=== PATIENT | male | born 1965 | race Caucasian/White ===

== ENCOUNTER 2018-09-19 21:43 | Inpatient (IN) | payer BC, OTHER ==
[2018-09-19] MEDS: SODIUM CHLORIDE 0.9% 1L BAG IV* (22:33)
[2018-09-19 22:43] LABS: ADD MAN DIFF? NO
[2018-09-19 22:46] LABS: WHITE BLOOD COUNT 15.3 10^3/ul (4.8-10.8)
[2018-09-19 22:46] LABS: BASOPHIL # 0.1 10^3/ul (0.0-0.1); BASOPHILS % 0.3 % (0.0-2.0); EOSINOPHILS # 0.4 10^3/ul (0.0-0.5); EOSINOPHILS % 2.7 % (0.0-7.0); HEMATOCRIT 46.1 % (42.0-52.0); HEMOGLOBIN 15.3 g/dl (14.0-18.0); LYMPHOCYTES # 1.7 10^3/ul (0.8-2.9); LYMPHOCYTES % 10.8 % (15.0-51.0); MEAN CORPUSCULAR HEMOGLOBIN 28.4 pg (29.0-33.0); MEAN CORPUSCULAR HGB CONC 33.2 g/dl (32.0-37.0); MEAN CORPUSCULAR VOLUME 85.7 fl (82.0-101.0); MEAN PLATELET VOLUME 10.7 fl (7.4-10.4); MONOCYTE # 0.9 10^3/ul (0.3-0.9); MONOCYTES % 6.1 % (0.0-11.0); NEUTROPHIL # 12.2 10^3/ul (1.6-7.5); NEUTROPHILS % 79.7 % (39.0-77.0); PLATELET COUNT 280 10^3/UL (140-415); RED BLOOD COUNT 5.38 10^6/ul (4.70-6.10); RED CELL DISTRIBUTION WIDTH 12.9 % (11.5-14.5)
[2018-09-19 23:00] LABS: LACTIC ACID 2.4 mmol/L (0.5-2.0)
[2018-09-19 23:03] LABS: ANION GAP 12 (5-13); BLOOD UREA NITROGEN 24 mg/dl (7-20); CALCIUM 9.2 mg/dl (8.4-10.2); CARBON DIOXIDE 28 mmol/L (21-31); CHLORIDE 95 mmol/L (97-110); CREATININE 1.31 mg/dl (0.61-1.24); Estimated GFR 57 mL/min (>60); GLUCOSE 174 mg/dl (70-220); POTASSIUM 3.5 mmol/L (3.5-5.1); SODIUM 135 mmol/L (135-144)
[2018-09-19 23:05] LABS: INR 1.09; PROTIME 14.2 Sec (11.9-14.9); PT RATIO 1.1
[2018-09-19 23:06] LABS: PARTIAL THROMBOPLASTIN TIME 26.4 Sec (23.0-35.0)
[2018-09-19] MEDS: CEFEPIME 2GM/50 ML (PMX) 50 ML IVPB (23:09)
[2018-09-19] MEDS: VANCOMYCIN 1 GM (PMX) 250 ML IVPB (23:10)
[2018-09-19 23:17] LABS: TROPONIN-I < 0.012 ng/ml (0.000-0.120)
[2018-09-20 00:50] LABS: ADD UMIC NO; UR ASCORBIC ACID NEGATIVE (NEGATIVE); UR BILIRUBIN (Dip) NEGATIVE (NEGATIVE); UR BLOOD (Dip) NEGATIVE (NEGATIVE); UR CLARITY SLIGHTLY CLOUDY (CLEAR); UR COLOR YELLOW (YELLOW); UR GLUCOSE (Dip) 1+ mg/dL (NEGATIVE); UR HYALINE CAST FEW /HPF (NONE SEEN); UR KETONES (Dip) NEGATIVE (NEGATIVE); UR LEUKOCYTE ESTERASE (Dip) NEGATIVE Leu/ul (NEGATIVE); UR MUCUS MANY /HPF (NONE SEEN); UR NITRITE (Dip) NEGATIVE (NEGATIVE); UR RBC 0 /HPF (0-5); UR SPECIFIC GRAVITY (Dip) 1.015 (1.003-1.030); UR TOTAL PROTEIN (Dip) NEGATIVE (NEGATIVE); UR UROBILINOGEN (Dip) 2+ mg/dL (NEGATIVE); UR WBC 2 /HPF (0-5)
[2018-09-20 01:05] LABS: LACTIC ACID 1.7 mmol/L (0.5-2.0)
[2018-09-20] MEDS ORDERED: ACETAMINOPHEN 325 MG TAB PO (04:00)
[2018-09-20] MEDS ORDERED: DOCUSATE SODIUM 100 MG CAP PO (04:00)
[2018-09-20] MEDS ORDERED: ONDANSETRON 4 MG INJ IV (04:00)
[2018-09-20] MEDS ORDERED: BISACODYL (EC) 5 MG TAB PO (04:00)
[2018-09-20] MEDS ORDERED: NACL 0.9% 3 ML SYG IV (04:00)
[2018-09-20] MEDS: SOD CHLORIDE 0.9% 500 ML IV (04:59)
[2018-09-20] MEDS ORDERED: ALPRAZOLAM 0.5 MG TAB PO ×2 (05:00→10:00)
[2018-09-20] MEDS ORDERED: HEPARIN 5,000 UNIT/0.5 ML VIAL (05:22)
[2018-09-20] MEDS: AMLODIPINE 5 MG TAB PO (05:28)
[2018-09-20] MEDS: HEPARIN 5,000 UNIT/1 ML VIAL SC (05:30)
[2018-09-20] MEDS ORDERED: PIPER-TAZO 2.25 GM (PMX) 50 ML IVPB (06:00)
[2018-09-20] MEDS ORDERED: VANCOMYCIN IV PER PHARMACY XX (06:00)
[2018-09-20] MEDS: PIPER-TAZO 3.375 GM IV (PMX) 100 ML IVPB ×3 (06:18→20:35)
[2018-09-20 06:21] LABS: ADD MAN DIFF? NO
[2018-09-20 06:26] LABS: WHITE BLOOD COUNT 14.7 10^3/ul (4.8-10.8)
[2018-09-20 06:26] LABS: BASOPHILS % 0.3 % (0.0-2.0); EOSINOPHILS % 0.1 % (0.0-7.0); HEMATOCRIT 40.3 % (42.0-52.0); HEMOGLOBIN 13.4 g/dl (14.0-18.0); LYMPHOCYTES # 0.7 10^3/ul (0.8-2.9); LYMPHOCYTES % 4.8 % (15.0-51.0); MEAN CORPUSCULAR HEMOGLOBIN 28.4 pg (29.0-33.0); MEAN CORPUSCULAR HGB CONC 33.3 g/dl (32.0-37.0); MEAN CORPUSCULAR VOLUME 85.4 fl (82.0-101.0); MEAN PLATELET VOLUME 10.9 fl (7.4-10.4); MONOCYTE # 0.7 10^3/ul (0.3-0.9); MONOCYTES % 4.7 % (0.0-11.0); NEUTROPHIL # 13.1 10^3/ul (1.6-7.5); NEUTROPHILS % 89.3 % (39.0-77.0); PLATELET COUNT 228 10^3/UL (140-415); RED BLOOD COUNT 4.72 10^6/ul (4.70-6.10); RED CELL DISTRIBUTION WIDTH 13.2 % (11.5-14.5)
[2018-09-20 06:42] LABS: LACTIC ACID 1.7 mmol/L (0.5-2.0)
[2018-09-20 06:43] LABS: HEMOGLOBIN A1C 6.3 % (0-5.9)
[2018-09-20 06:51] LABS: ALANINE AMINOTRANSFERASE 25 IU/L (13-69); ALBUMIN 3.8 g/dl (3.3-4.9); ALKALINE PHOSPHATASE 72 IU/L (42-121); ANION GAP 12 (5-13); ASPARTATE AMINO TRANSFERASE 25 IU/L (15-46); BILIRUBIN,INDIRECT 0.7 mg/dl (0-1.1); BILIRUBIN,TOTAL 0.7 mg/dl (0.2-1.3); BLOOD UREA NITROGEN 18 mg/dl (7-20); CALCIUM 8.5 mg/dl (8.4-10.2); CARBON DIOXIDE 29 mmol/L (21-31); CHLORIDE 96 mmol/L (97-110); CREATININE 1.05 mg/dl (0.61-1.24); Estimated GFR > 60 mL/min (>60); GLUCOSE 232 mg/dl (70-220); MAGNESIUM 1.6 mg/dl (1.7-2.5); POTASSIUM 3.1 mmol/L (3.5-5.1); SODIUM 137 mmol/L (135-144); TOTAL PROTEIN 5.9 g/dl (6.1-8.1)
[2018-09-20 07:17] LABS: THYROID STIMULATING HORMONE 0.254 MIU/L (0.465-4.680)
[2018-09-20] MEDS: HYDROCODONE/APAP (5/325) TAB PO ×3 (07:45→20:34)
[2018-09-20] MEDS: hydrALAzine 20 MG INJ IV (07:46)
[2018-09-20] MEDS: VANCOMYCIN 1.25 GM in SOD CHLORIDE 0.9% 250 ML IVPB ×2 (08:56→21:15)
[2018-09-20] MEDS: HYDROCHLOROTHIAZIDE 25 MG TAB PO (08:56)
[2018-09-20] MEDS: INFLUENZA VIRUS VACCINE 0.5 ML (DISPENSING) IM* (08:58)
[2018-09-20] MEDS ORDERED: hydrALAzine 20 MG INJ IV (10:00)
[2018-09-20] MEDS: METOPROLOL 25 MG TAB PO ×2 (10:59→20:34)
[2018-09-20] MEDS: FAMOTIDINE 20 MG TAB PO ×2 (10:59→20:34)
[2018-09-20] MEDS: POTASSIUM CHLORIDE (SR) 20 MEQ TAB PO ×2 (10:59→11:10)
[2018-09-20] MEDS: ENOXAPARIN 40 MG/0.4 ML SYG SC (11:00)
[2018-09-20] MEDS: MAGNESIUM SULFATE 2 GM/50 ML 50 ML IVPB (11:00)
[2018-09-20] MEDS: morphine 2 MG INJ IV ×3 (13:09→21:15)
[2018-09-20] MEDS: NICOTINE (21 MG/24 HR) PATCH TRANSDERM (16:22)
[2018-09-20] MEDS: ALPRAZOLAM 0.25 MG TAB PO (20:33)
[2018-09-21] MEDS: morphine 2 MG INJ IV ×3 (01:39→10:34)
[2018-09-21] MEDS: HYDROCODONE/APAP (5/325) TAB PO ×2 (03:39→09:34)
[2018-09-21] MEDS: PIPER-TAZO 3.375 GM IV (PMX) 100 ML IVPB (05:17)
[2018-09-21 06:10] LABS: ADD MAN DIFF? NO
[2018-09-21 06:13] LABS: BASOPHILS % 0.5 % (0.0-2.0); EOSINOPHILS % 0.5 % (0.0-7.0); HEMATOCRIT 43.7 % (42.0-52.0); HEMOGLOBIN 14.5 g/dl (14.0-18.0); LYMPHOCYTES # 1.5 10^3/ul (0.8-2.9); LYMPHOCYTES % 17.3 % (15.0-51.0); MEAN CORPUSCULAR HEMOGLOBIN 27.9 pg (29.0-33.0); MEAN CORPUSCULAR HGB CONC 33.2 g/dl (32.0-37.0); MEAN CORPUSCULAR VOLUME 84.2 fl (82.0-101.0); MEAN PLATELET VOLUME 10.7 fl (7.4-10.4); MONOCYTE # 0.8 10^3/ul (0.3-0.9); MONOCYTES % 8.8 % (0.0-11.0); NEUTROPHIL # 6.2 10^3/ul (1.6-7.5); NEUTROPHILS % 72.3 % (39.0-77.0); PLATELET COUNT 237 10^3/UL (140-415); RED BLOOD COUNT 5.19 10^6/ul (4.70-6.10); RED CELL DISTRIBUTION WIDTH 12.9 % (11.5-14.5)
[2018-09-21 06:13] LABS: WHITE BLOOD COUNT 8.6 10^3/ul (4.8-10.8)
[2018-09-21 06:59] LABS: ALANINE AMINOTRANSFERASE 26 IU/L (13-69); ALKALINE PHOSPHATASE 79 IU/L (42-121); ANION GAP 10 (5-13); ASPARTATE AMINO TRANSFERASE 22 IU/L (15-46); BILIRUBIN,INDIRECT 0.2 mg/dl (0-1.1); BILIRUBIN,TOTAL 0.2 mg/dl (0.2-1.3); BLOOD UREA NITROGEN 12 mg/dl (7-20); CALCIUM 8.7 mg/dl (8.4-10.2); CARBON DIOXIDE 29 mmol/L (21-31); CHLORIDE 100 mmol/L (97-110); CREATININE 0.83 mg/dl (0.61-1.24); Estimated GFR > 60 mL/min (>60); GLUCOSE 149 mg/dl (70-220); MAGNESIUM 2.1 mg/dl (1.7-2.5); SODIUM 139 mmol/L (135-144)
[2018-09-21 07:00] LABS: ALBUMIN 3.8 g/dl (3.3-4.9); ALBUMIN/GLOBULIN RATIO 1.52; TOTAL PROTEIN 6.3 g/dl (6.1-8.1)
[2018-09-21] MEDS: VANCOMYCIN 1.25 GM in SOD CHLORIDE 0.9% 250 ML IVPB (09:06)
[2018-09-21] MEDS: NICOTINE (21 MG/24 HR) PATCH TRANSDERM (09:12)
[2018-09-21] MEDS: FAMOTIDINE 20 MG TAB PO (09:12)
[2018-09-21] MEDS: METOPROLOL 25 MG TAB PO (09:13)
[2018-09-21] MEDS: HYDROCHLOROTHIAZIDE 25 MG TAB PO (09:13)
[2018-09-21] MEDS: ENOXAPARIN 40 MG/0.4 ML SYG SC (09:15)
[2018-09-21] MEDS: POTASSIUM CHLORIDE (SR) 20 MEQ TAB PO ×2 (09:34→11:55)
[2018-09-21] MEDS: LEVOFLOXACIN 500 MG TAB PO (10:33)
[2018-09-21] MEDS: ALPRAZOLAM 0.25 MG TAB PO (11:55)
== END 2018-09-21 14:35 | disposition left against medical advice (07) | DRG 603 ==
LOC: E/R 21:43 → 2NE 09-20 03:36
DX: L03.116 Cellulitis of left lower limb (principal); E87.6 Hypokalemia; L03.115 Cellulitis of right lower limb; I10 Essential (primary) hypertension; F41.9 Anxiety disorder, unspecified; R73.9 Hyperglycemia, unspecified; F17.210 Nicotine dependence, cigarettes, uncomplicated; F11.10 Opioid abuse, uncomplicated; Z53.21 Procedure and treatment not carried out due to patient leaving prior to being seen by health care provider; Z59.0 Homelessness
CPT/HCPCS: 36415; 71045; 80048; 80053; 81001; 81003; 83036; 83605; 83735; 84443; 84484; 85025; 85610; 85730; 87040; 87086; 90686; 93005; 96365; 96366; 96368; 99291-25; G0378